=== PATIENT | female | born 1985 | race Caucasian/White ===

== ENCOUNTER 2019-10-16 07:51 | Day surgery (SDC) | payer OTHER ==
[~2019-10-16] VITALS: Ht 180.3 cm; Wt 121.1 kg
[2019-10-16] MEDS ORDERED: BUPIVACAINE-MPF/EPI 0.25% 30 ML VIAL INJ ONE (08:42)
[2019-10-16] MEDS ORDERED: LACTATED RINGERS 1,000 ML IV SCH (09:01)
[2019-10-16] MEDS ORDERED: MIDAZOLAM 2 MG/2 ML VIAL ONE (09:02)
[2019-10-16] MEDS ORDERED: MEPERIDINE 50 MG/ML SYR ONE (09:03)
[2019-10-16] MEDS ORDERED: fentaNYL 0.05 MG/ML VIAL ONE (09:03)
[2019-10-16] MEDS ORDERED: HYDROmorphone 1 MG/ML AMP IVP PRN (09:05)
[2019-10-16] MEDS ORDERED: MEPERIDINE 25 MG/ML SYR IVP PRN (09:05)
[2019-10-16] MEDS ORDERED: ONDANSETRON 4 MG/2 ML VIAL IVP PRN (09:05)
[2019-10-16] MEDS ORDERED: diphenhydrAMINE 50 MG/ML VIAL IVP PRN (09:05)
== END 2019-10-16 12:05 | disposition home or self-care (01) ==
LOC: MDS 07:51 → MMU 07:52 → MDS 12:05
PROVIDERS: ATTEND Obstetrics & Gynecology
DX: Z30.2 Encounter for sterilization (principal); J45.909 Unspecified asthma, uncomplicated; E66.9 Obesity, unspecified; Z90.49 Acquired absence of other specified parts of digestive tract
CPT/HCPCS: 58661; J2175; J2250; J3010; J3490; J7120